=== PATIENT | female | born 1955 | race Caucasian/White ===

== ENCOUNTER → 2017-04-24 | Outpatient (CLI) | payer OTHER ==
--- NOTE | 2017-05-07 11:02 | SS ---
ADMIT: 04/24/2017 RM/LOC: [facility] MR#: [id number] [place], [place] [id number] ELENO AMADORETTE Aniyah [address] [place] [address] Sleep Study SEX: F AGE: 61 : 1955 STUDY DATE: 04/24/2017 CLINICAL HISTORY: This is a 61-year-old female, body mass 47.8, 67 inches, 304 pounds, with known history of obstructive sleep apnea and nocturnal hypoxemia, in the sleep lab for CPAP titration. TECHNICAL DESCRIPTION: CPAP titration performed on night of 04/24/2017, attended by a trained nuclear medical technologist. TITRATION FINDINGS: TITRATION DESCRIPTION: The patient was titrated from 10 cm CPAP. Respironics Comfort Gel mask was used. SLEEP: Total time bed is 383.5 minutes, total sleep time is 291 minutes, sleep efficiency is 75.9%. 59% hours spent in stage II sleep, 7.4% hours spent in stage REM. BREATHING: Good resolution of obstructive events was seen on CPAP 10 cm. The patient was seen in REM sleep in lateral position with only occasional hypopneas. Unfortunately, no supine sleep was seen during the study. OXYGEN SATURATION: Mean sleeping 93%. CARDIAC: Average heart rate 62 beats per minute. MOVEMENTS/POSITION: During the study, the patient slept in the lateral position only. No supine sleep was seen. There was significant periodic leg movement of sleep in the first half of the night with a periodic leg movement index of 64.9. IMPRESSION AND PLAN: Good resolution of obstructive events was noted on CPAP 10 cm. The patient was seen in REM sleep in lateral position only. No supine sleep was seen during the study. Severe periodic leg movements of sleep were seen in the first half of the night with a periodic leg movement index of 64.9. Clinical correlation needed. CPAP compliance followup is recommended. Tadeo Garland MD/ mi JOB #: [id number] CC: Elijah Monteiro MD, Attending Physician Vinh Graham PA-C, Family Physician Elijah Monteiro MD
== END | disposition home or self-care (01) ==
LOC: RESC 20:01
DX: G47.33 Obstructive sleep apnea (adult) (pediatric) (principal); G47.10 Hypersomnia, unspecified; R06.02 Shortness of breath